=== PATIENT | female | born 1940 | race Caucasian/White ===

== ENCOUNTER 2016-10-23 20:45 | Inpatient (IN) ==
[2016-10-23] MEDS ORDERED: methylPREDNISolone SOD SUC 125 MG/2 ML VIAL IV STA (22:25)
[2016-10-23] MEDS ORDERED: AZITHROMYCIN INJ 500 MG in SODIUM CHLORIDE 0.9% 250 ML IV STA (22:25)
[2016-10-23] MEDS ORDERED: ONDANSETRON 4 MG/2 ML VIAL IV STA (22:25)
[2016-10-23] MEDS ORDERED: SODIUM CHLORIDE 0.9% 500 ML IV STA (22:25)
[2016-10-23] MEDS ORDERED: ALBUTEROL 2.5 MG/3 ML NEB RESP TX SCH (22:30)
[2016-10-23] MEDS ORDERED: AZITHROMYCIN 500 MG VIAL IV ONE (22:38)
[2016-10-23] MEDS ORDERED: ONDANSETRON 4 MG/2 ML VIAL ONE (22:38)
[2016-10-23] MEDS ORDERED: methylPREDNISolone SOD SUC 125 MG/2 ML VIAL ONE (22:38)
--- NOTE | 2016-10-24 00:39 | Emergency Department Note ---
Cathy Aquino Mantricia, am scribing for, and in the presence of, Shawn Elliott MD 22:28. Lexi Aquino Charles R, MD, personally performed the services described in this documentation, ascribed by Jacinto Morgan in my presence, and it is both accurate and complete . Arrival - Arrival Chief Complaint: Upper Respiratory ED Nursing Triage Note: Pt arrives via ems from home with complaints of cough and congestion for 2 days. Pt states that she has been coughing up yellow sputum and has had a low grade temp at home. Denies seeing her PCP. Has been taking Mucinex with no relief. States that tonight she is so sore in her upper abd and chest from coughing she called the ambulance. Pt wears home oxygen at 2L /nc. Mode of Arrival: Stretcher Limitations: No Limitations Source: Patient Time Seen by Provider: 10/23/16 21:20 - History of Present Illness HPI Narrative: Pt is a 75 y/o white female arriving to ED with c/o cough/congestion that onset 2 days ago. She states that she was Dx with pneumonia 3 times last year and fears that this will be her diagnosis this time. She states that her body is sore all over from coughing and she has experienced a fever with the cough. Pt' s flu and pneumonia shots are UTD. She has a PMHx of COPD and is currently on home O2. She reports no other complaints to ED. Onset (ago): day(s) Date of Last Menstrual Period: Hyster Allergies/Adverse Reactions: Allergies Allergy/AdvReac Type Severity Reaction Status Date / Time adhesive tape Allergy Verified 08/25/15 16:27 ceftriaxone [From Rocephin] Allergy Verified 08/24/15 17:16 Home Medications: Home Medications Medication Instructions Recorded Confirmed Type Hyoscyamine Sulfate [Symax] 0.125 mg PO Q4HR PRN 08/24/15 10/23/16 History Levothyroxine Tab [Synthroid Tab] 25 mcg PO DAILY@0700 08/24/15 10/23/16 History Meclizine [Antivert] 25 mg PO DAILY PRN 08/24/15 10/23/16 History Nitroglycerin [Nitroglycerin SL 0.4 mg SL Q5M PRN 08/24/15 10/23/16 History Tab] Temazepam [Restoril] 30 mg PO BEDTIME PRN 08/24/15 10/23/16 History amLODIPine [Norvasc] 5 mg PO DAILY 08/24/15 10/23/16 History Fluticasone/Vilanterol [Breo 1 puff INH DAILY 08/25/15 10/23/16 History Ellipta 100-25 Mcg INH] HYDROcodone/ACETAMIN 10-325 [[place] 0.5 - 1 tablet PO BID PRN 08/25/15 10/23/16 History 10-325] Umeclidinium [place] [Incruse 1 puff INH DAILY 08/25/15 10/23/16 History Ellipta] Aspirin Chew Tab 81 mg PO DAILY tablet 08/27/15 10/23/16 Rx Cilostazol [Pletal] 50 mg PO BID #60 tablet 08/27/15 10/23/16 Rx Gabapentin Cap/Tab [Neurontin 100 mg PO TID #90 capsule 08/27/15 10/23/16 Rx Cap/Tab] Sertraline [Zoloft] 25 mg PO BEDTIME #30 tablet 08/27/15 10/23/16 Rx Ticagrelor [Brilinta] 90 mg PO BID #60 tablet 08/27/15 10/23/16 Rx Acetaminophen Tab [Tylenol Tab] 325 mg PO BID PRN 09/01/15 10/23/16 History Isosorbide Dinitrate Sr [Isordil 40 mg PO TID 09/01/15 10/23/16 History Sr] Simethicone 125 mg PO DAILY PRN 09/01/15 10/23/16 History Naproxen Sodium [Aleve Tab] 220 mg PO DAILY tablet 09/02/15 10/23/16 Rx Omeprazole 20 mg PO DAILY #30 tablet. 09/02/15 10/23/16 Rx traMADol TAB [Ultram] 50 mg PO BID #30 tablet 09/02/15 10/23/16 Rx Review of System - Review of System 12 point system: reviewed and no additional remarkable complaints except as stated - Review of System Constitutional: Present: fever, other (body sore). Absent: chills, diaphoresis Eyes: Absent: discharge, pain Respiratory: Present: cough. Absent: respiratory distress, wheezing Cardiovascular: Absent: chest pain, palpitations Gastrointestinal: Absent: abdominal pain, nausea, vomiting, diarrhea Medical,Surgical,& Family Hx - Medical History Cardio: History of: Hypertension, [place], Cardiovascular Problems (stents) Neurology: History of: TIA Endocrine: History of: Thyroid Disorder Respiratory: History of: COPD Gastrointestinal: History of: GERD, GI Problems (recent colon surgery, colon removal) - Surgical History Cardiac Surgeries: Sugical HX of: Cardiac Catheterization Abdominal Surgeries: Surgical HX of: Abdominal Surgery (intestinal blockage in 2013) Reproductive Surgeries: Surgical HX of;: Hysterectomy - Family History Family History: Reports;: Family Heart Disease - Social History Smoking Status: Light tobacco smoker Frequency of Alcohol Use: None Type of Drug Use: None Exam Vital Signs: Vital Signs Temperature 99.6 F 10/23/16 20:45 Pulse Rate 91 H 10/23/16 20:45 Respiratory Rate 20 10/23/16 20:45 Blood Pressure 140/85 10/23/16 20:45 O2 Sat by Pulse Oximetry 98 10/23/16 20:45 - General General appearance: alert, in no apparent distress, other (frail) - Head Head exam: Present: atraumatic, normocephalic, normal inspection - Eye Eye exam: Present: PERRL, EOMI, other (sunken orbits) - ENT ENT exam: Present: normal exam, normal oropharynx, mucous membranes moist, TM's normal bilaterally, normal external ear exam - Neck Neck exam: Present: normal inspection, full ROM, trachea midline. Absent: tenderness - Chest Chest inspection: Present: normal inspection, symmetric chest wall rise. Absent : tenderness - Respiratory Respiratory exam: Present: normal lung sounds bilaterally, accessory muscle use - Cardiovascular Cardiovascular exam: Present: regular rate, normal rhythm, normal heart sounds - Abdominal Exam Abdominal exam: Present: soft, normal bowel sounds. Absent: distention, tenderness, guarding, rebound - Extremities Exam Extremities exam: Present: normal inspection, full ROM, normal capillary refill. Absent: tenderness, pedal edema - Back Exam Back exam: Present: normal inspection, full ROM. Absent: tenderness - Neurological Exam Neurological exam: Present: alert, oriented X3, CN II-XII intact, normal gait, reflexes normal - Psychiatric Psychiatric exam: Present: normal affect, normal mood - Skin Skin exam: Present: warm, dry, intact, normal color Course - Reevaluation(s) Reevaluation #1: Patient reevaluated she is not breathing very well still slight improvement. Patient will place the hospital for COPD exacerbation Time: 02:31 - Consultations Consultation #1: Hospitalist will admit patient Time: 02:31 Results - Labs CBC & BMP: 10/23/16 00:26 10/23/16 00:26 Lab Results: I have reviewed the patients labs Critical Care Time Critical Care Time: Yes Total Critical Care Time: 60 Disposition Clinical Impression: Acute dyspnea, COPD with acute exacerbation, Bronchitis, Chest wall pain, Elevated troponin, Fever Case discussed with: patient, patient's family Disposition: Still a Patient Condition: Guarded Time of Disposition: 02:33
[2016-10-24 01:22] LABS: Basophils % 0.3 % (0.0-0.8); Eosinophils % 0.1 % (0.00-10.9); Hematocrit 42.5 VOL% (35.7-47.0); Hemoglobin 13.9 GM/DL (12.0-16.0); Immature Granulocytes % 0.5 %; Immature Granulocytes Absolute 0.06 #; Lymphocytes # 0.9 10*3/uL (1.4-4.0); Lymphocytes % 7.8 % (21.3-54.2); Mean Corpuscular HGB Conc 32.7 GM/DL (32-36); Mean Corpuscular Hemoglobin 31 PG (27-34); Mean Corpuscular Volume 95.7 FL (87-102); Mean Platelet Volume 9.6 FL (9.6-12.0); Monocytes # 0.6 10*3/uL (0.11-0.8); Monocytes % 4.9 % (1.7-12.7); Neutrophils # 10.3 10*3/uL (1.4-7.4); Neutrophils % 86.4 % (38.7-73.9); Platelet Count 270 T/CUMM (130-400); Red Blood Count 4.44 MC/CUMM (3.8-5.5); Red Cell Distribution Width 14.1 % (9.3-17.3); White Blood Count 11.9 T/CUMM (4-12)
[2016-10-24 01:32] LABS: PT Patient Result 10.3 SECS
[2016-10-24 01:56] LABS: Alanine Aminotransferase 42 U/L (13-56); Albumin 3.6 G/DL (3.4-5.0); Alkaline Phosphatase 72 U/L (45-117); Aspartate Amino Transferase 51 U/L (0-37); Bilirubin,Total < 0.39 MG/DL (0.2-1.0); Blood Urea Nitrogen 17 MG/DL (7-18); Calcium 9.5 MG/DL (8.5-10.1); Glucose 174 MG/DL (74-106); Magnesium 2.1 MG/DL (1.8-2.4); Osmolality,Calculated 280.7 MOS/KG (273-304); Potassium 4.3 MMOL/L (3.5-5.1); Sodium 138 MMOL/L (136-145); Total Protein 6.9 G/DL (6.4-8.3)
[2016-10-24 02:33] LABS: CKMB % 7.4 %
[2016-10-24 02:36] LABS: Troponin I Only 0.193 NG/ML (0.00-0.045)
[2016-10-24] MEDS ORDERED: ENOXAPARIN 100 MG/ML SYRINGE SUBCUT STA (02:39)
[2016-10-24 03:01] LABS: ABG Base Excess -2.7 MMOL/L (-2.5-2.5); ABG HCO3 22.2 MMOL/L (20-26); ABG Oxygen Saturation 96.8 % (95-100); ABG TCO2 25.1 MMOL/L (23-27); Allen Test Positive
[2016-10-24 03:03] LABS: ABG PCO2 70.9 MM HG (35-48); ABG PH 7.197 (7.35-7.45)
[2016-10-24] MEDS ORDERED: FUROSEMIDE 40 MG/4 ML VIAL IV STA (03:05)
[2016-10-24] MEDS ORDERED: FUROSEMIDE 40 MG/4 ML VIAL ONE (03:08)
[2016-10-24] MEDS ORDERED: ENOXAPARIN 30 MG/0.3 ML SYRINGE ONE (03:08)
[2016-10-24] MEDS ORDERED: ALBUTEROL/IPRATROPIUM 3 ML NEB RESP TX PRN (03:14)
[2016-10-24] MEDS ORDERED: TEMAZEPAM 15 MG CAPSULE PO PRN (03:19)
[2016-10-24] MEDS ORDERED: NITROGLYCERIN SL 0.4 MG TABLET SL PRN (03:19)
[2016-10-24] MEDS ORDERED: HYOSCYAMINE 0.125 MG TABLET PO PRN (03:19)
[2016-10-24] MEDS ORDERED: ACETAMINOPHEN 325 MG TABLET PO PRN (03:19)
[2016-10-24] MEDS ORDERED: SIMETHICONE CHEW 125 MG TABLET PO PRN (03:19)
[2016-10-24] MEDS ORDERED: ETOMIDATE 20 MG/10 ML VIAL IV ONE (03:24)
--- NOTE | 2016-10-24 03:27 | Hospitalist History & Physical ---
Assessment and Plan (1) Acute respiratory failure with hypoxia and hypercarbia Status: Acute Assessment and plan: Patient may need intubation. Dr. Elliott in the emergency room is going to talk with the patient regarding intubating her. I believe she needs it but. Once intubated patient will be followed by pulmonary in the ICU on consultation for vent management Current Visit: Yes (2) Abnormal EKG Status: Acute Assessment and plan: Pursue troponins with 4 more draws. Patient may need to be seen by ornament stapler. Current Visit: Yes (3) COPD with acute exacerbation Status: Acute Assessment and plan: This possible this could bacteriuria instigated. Will get sputum for Gram stain and culture. Also do sputum for AFB stain and culture. Reportedly patient is allergic to ceftriaxone therefore give aztreonam 1 g IV every 8 hours and vancomycin 750 mg IV every 12 hours and azithromycin 500 mg IV q. daily for the next 4 days. Current Visit: Yes (4) Elevated troponin Status: Acute Current Visit: Yes (5) Hypercholesterolemia Status: Acute Assessment and plan: Continue home meds. Check lipid panel in the bone Current Visit: No History of Present Illness Chief complaint: Respiratory distress History of present illness: Ms. Meneses is a 75 year old female presented to the ED with c/o cough/congestion that onset 2 days ago. She states that she was Dx with pneumonia 3 times last year and fears that this will be her diagnosis this time. She states that her body is sore all over from coughing and she has experienced a fever with the cough. Pt's flu and pneumonia shots are UTD. She has a PMHx of COPD and is currently on home O2. She reports no other complaints to ED. she also states that she has lost a lot of weight recently patient after resection of her small bowel to manage bowel blockade that has been caused by adhesions. Denies any history of chronic pneumonias that will be caused by Mycobacterium avium complex (as would be with Lady Marana syndrome). Home Medications Medication Instructions Recorded Confirmed Type Hyoscyamine Sulfate [Symax] 0.125 mg PO Q4HR PRN 08/24/15 10/23/16 History Levothyroxine Tab [Synthroid Tab] 25 mcg PO DAILY@0700 08/24/15 10/23/16 History Meclizine [Antivert] 25 mg PO DAILY PRN 08/24/15 10/23/16 History Nitroglycerin [Nitroglycerin SL 0.4 mg SL Q5M PRN 08/24/15 10/23/16 History Tab] Temazepam [Restoril] 30 mg PO BEDTIME PRN 08/24/15 10/23/16 History amLODIPine [Norvasc] 5 mg PO DAILY 08/24/15 10/23/16 History Fluticasone/Vilanterol [Breo 1 puff INH DAILY 08/25/15 10/23/16 History Ellipta 100-25 Mcg INH] HYDROcodone/ACETAMIN 10-325 [[place] 0.5 - 1 tablet PO BID PRN 08/25/15 10/23/16 History 10-325] Umeclidinium [place] [Incruse 1 puff INH DAILY 08/25/15 10/23/16 History Ellipta] Aspirin Chew Tab 81 mg PO DAILY tablet 08/27/15 10/23/16 Rx Cilostazol [Pletal] 50 mg PO BID #60 tablet 08/27/15 10/23/16 Rx Gabapentin Cap/Tab [Neurontin 100 mg PO TID #90 capsule 08/27/15 10/23/16 Rx Cap/Tab] Sertraline [Zoloft] 25 mg PO BEDTIME #30 tablet 08/27/15 10/23/16 Rx Ticagrelor [Brilinta] 90 mg PO BID #60 tablet 08/27/15 10/23/16 Rx Acetaminophen Tab [Tylenol Tab] 325 mg PO BID PRN 09/01/15 10/23/16 History Isosorbide Dinitrate Sr [Isordil 40 mg PO TID 09/01/15 10/23/16 History Sr] Simethicone 125 mg PO DAILY PRN 09/01/15 10/23/16 History Naproxen Sodium [Aleve Tab] 220 mg PO DAILY tablet 09/02/15 10/23/16 Rx Omeprazole 20 mg PO DAILY #30 tablet. 09/02/15 10/23/16 Rx traMADol TAB [Ultram] 50 mg PO BID #30 tablet 09/02/15 10/23/16 Rx Allergies Allergy/AdvReac Type Severity Reaction Status Date / Time adhesive tape Allergy Verified 08/25/15 16:27 ceftriaxone [From Rocephin] Allergy Verified 04/11/16 17:16 Medical,Surgical,& Family Hx - Medical History Cardio: History of: Hypertension, [place], Cardiovascular Problems (stents) Neurology: History of: TIA Endocrine: History of: Thyroid Disorder Respiratory: History of: COPD Gastrointestinal: History of: GERD, GI Problems (recent colon surgery, colon removal) - Surgical History Cardiac Surgeries: Sugical HX of: Cardiac Catheterization Abdominal Surgeries: Surgical HX of: Abdominal Surgery (intestinal blockage in 2014) Reproductive Surgeries: Surgical HX of;: Hysterectomy - Family History Family History: Reports;: Family Heart Disease - Social History Smoking Status: Light tobacco smoker Frequency of Alcohol Use: None Type of Drug Use: None Review of systems: A 12 point system assessment was done. Patient is problems talking to him in full statements because of respiratory distress. She obviously has very distant lung sounds related to exacerbation of COPD. They have just done an ABG but has a pH of 7.19 PCO2 of 70 and a PO2 110 troponin is bumped to 0.193 but CPK total is only 123 with a CK-MB of 9.1B natruretic peptide is 434. Exam - Constitutional Vitals: Period Temp Pulse Resp BP Sys/Booker Pulse Ox Last 24 Hr 99.6 F-99.6 F 91-91 20-20 140-140/85-85 98 General appearance: under weight - Head Head exam: Present: normocephalic, atraumatic - Eye Eye exam: Present: EOMI, other (Anicteric sclera no conjunctival petechia) Pupils: Present: JESENIA - Neck Neck exam: Present: normal inspection, other (Supple neck no adenopathy midline trachea) - Respiratory Respiratory exam: Present: wheezes (Diffuse), other (Distant lung sounds) - Cardiovascular Cardiovascular exam: Present: regular rate and rhythm - GI/Abdominal GI/Abdominal exam: Present: normal bowel sounds, soft - Extremities Exam Extremities exam: Present: full ROM - Neurological Exam Neurological exam: Present: alert, oriented X3, CN II-XII intact - Psychiatric Psychiatric exam: Present: anxious - Skin Skin exam: Present: normal color, warm, dry Results - Labs CBC & BMP: 10/23/16 00:26 10/23/16 00:26 Lab Results: I have reviewed the past 24 hour labs (Pure respiratory acidosis with a pH of 7.197 PCO2 of 70.9 PO2 110 serum bicarb of 34 we suggest that she may have some extent of CO2 retention for a long time AST 51 ALT 42 alk phos of 72. EKG shows sinus rhythm poor progression of anterior forces deep T-wave inversion in the lateral leads and inferior ST depression)
[2016-10-24] MEDS ORDERED: VANCOMYCIN INJ 750 MG in SODIUM CHLORIDE 0.9% 250 ML IV SCH (03:30)
[2016-10-24] MEDS ORDERED: SUCCINYLCHOLINE 200 MG/10 ML VIAL ONE (03:53)
[2016-10-24] MEDS ORDERED: PROPOFOL 1,000 MG/100 ML BOTTLE IV ONE (03:57)
[2016-10-24] MEDS ORDERED: VECURONIUM 10 MG VIAL IV STA (04:13)
[2016-10-24] MEDS: PROPOFOL 1,000 MG/100 ML BOTTLE IV SCH ×2 (04:15→21:10)
[2016-10-24 04:18] LABS: ABG Base Excess -1.8 MMOL/L (-2.5-2.5); ABG Oxygen Saturation 99.4 % (95-100); ABG PH 7.293 (7.35-7.45); ABG TCO2 22.9 MMOL/L (23-27)
--- NOTE | 2016-10-24 04:48 | EKG Report ---
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
[2016-10-24] MEDS ORDERED: VECURONIUM 10 MG VIAL IV ONE (05:45)
[2016-10-24] MEDS: LEVOTHYROXINE 25 MCG TABLET PO SCH (06:23)
[2016-10-24] MEDS: AZTREONAM 1,000 MG in SODIUM CHLORIDE 0.9% 100 ML IV SCH ×3 (06:23→21:35)
[2016-10-24] MEDS ORDERED: IPRATROPIUM 500 MCG/2.5 ML NEB RESP TX SCH (07:00)
--- NOTE | 2016-10-24 07:32 | XRay Report ---
Referring Physician: Shawn Elliott Exam: XR chest 1V portable Date: October 23, 2016 at 10:30 PM Reason: Shortness of breath Comparison: Chest 2 views September 01, 2015 Findings: The cardiac silhouette is normal in size, but there is prominent calcified plaque at the thoracic aorta and likely calcified mediastinal lymph nodes. The lungs are hyperexpanded, which can be seen in COPD, and emphysema is suspected. There are also reticular opacities within both lungs. This is similar to before and likely represents scarring/fibrosis. Mild prominent edema is not excluded. No pneumothorax is identified. There is blunting of the costophrenic angles, which could be related to scarring. Remote left rib fractures are present, but no acute osseous process is seen. Impression: Chronic changes are present as described above. Superimposed mild pulmonary edema is not excluded. PROCEDURE INTERPRETED AT [facility] DEPARTMENT OF RADIOLOGY Final Report Signed by: Dr. Johan Carmichael
[2016-10-24] MEDS: ALBUTEROL/IPRATROPIUM 3 ML NEB RESP TX SCH ×3 (07:44→21:08)
--- NOTE | 2016-10-24 08:22 | XRay Report ---
Portable chest Date: 10/24/2016 Clinical history: Endotracheal tube placement Comparison: 10/23/2016 Technique: Portable AP sitting chest Findings: The heart is normal in size. The lungs are overexpanded with chronic scarring. Progressive parenchymal findings with ill-defined densities. The endotracheal tube is in satisfactory position. Nasogastric tube seen entering the stomach. Stable mediastinum with degenerative changes. Old healed left rib fractures. Impression: The endotracheal tube is in satisfactory position with nasogastric tube seen entering the stomach. Bullous emphysema with chronic scarring. Progressive atelectasis/infiltration with ill-defined densities. PROCEDURE INTERPRETED AT [facility] DEPARTMENT OF RADIOLOGY Final Report Signed by: Dr. Mary Kirkland
[2016-10-24] MEDS: VANCOMYCIN INJ 500 MG in SODIUM CHLORIDE 0.9% 100 ML IV SCH (08:52)
[2016-10-24] MEDS: ASPIRIN CHEW 81 MG TABLET PO SCH (08:52)
[2016-10-24] MEDS: TICAGRELOR 90 MG TABLET PO SCH ×2 (08:52→21:12)
[2016-10-24] MEDS: PANTOPRAZOLE 40 MG TABLET PO SCH (08:53)
[2016-10-24] MEDS: amLODIPine 5 MG TABLET PO SCH (08:53)
[2016-10-24] MEDS: GABAPENTIN 100 MG CAPSULE PO SCH ×3 (08:53→21:13)
[2016-10-24] MEDS: traMADol 50 MG TABLET PO SCH ×2 (08:53→21:12)
[2016-10-24] MEDS: CILOSTAZOL 50 MG TABLET PO SCH ×2 (08:53→21:12)
[2016-10-24] MEDS ORDERED: NAPROXEN 500 MG TABLET PO PRN (09:00)
[2016-10-24] MEDS ORDERED: ISOSORBIDE DINITRATE SR 40 MG TABLET PO SCH (09:00)
--- NOTE | 2016-10-24 10:30 | Pulmonology Consult Note ---
History of Present Illness Chief complaint: Ventilator. Acute exacerbation of chronic COPD. History of present illness: Ms. Meneses is a 75 year old white female whom I been asked to see in pulmonary consultation for evaluation and treatment of her pulmonary problems and management of mechanical ventilation. This patient came to the emergency room with a complaint of coughing congestion over 2 day period of time. She went on to add that she had pneumonia 3 times in the last year and was afraid that this would progress to pneumonia. She complained that her whole body was painful because of coughing and she had experienced fever. She went on to say that she has lost a lot of weight recently after re-section of small bowel to manage bowel blockage. Blockage of been caused by adhesions. The remainder of her review of systems were negative. In the emergency room on FiO2 32% the patient's ABGs showed a pH of 7.197. PCO2 of 70.9 and a PO2 of 110 with a bicarb of 22.2. In the emergency room the patient required intubation mechanical ventilation. Allergies. Adhesive tape. Rocephin. Statin intolerance Past history. High blood pressure. Heart disease followed by Dr. Manas Anne. Myocardial infarction. Cardiac stents. Thyroid disease. History of TIAs. COPD. Gastroesophageal reflux disease. Recent removal of small bowel. Previous 6 hysterectomy. Chronic coagulation, Brilinta. Social history. Patient describes herself as a light tobacco smoker. She denies alcohol. Family history. Positive for heart disease. Chest x-ray. My interpretation. Heart size is normal. Both hilum are retracted superiorly. Benign calcifications both hilar areas. Pulmonary arteries are at least top normal. Calcification aortic knob. Endotracheal tube is in good position. Mediastinum is normal. There is bilateral upper lung interstitial scarring with some loss of volume and retraction of the hilum superiorly. In the mid lung gandhi bilaterally there are possible small nodular areas that look like old infection or scarring. There is hyperlucency of the lower lung gandhi. Bullae are seen in both bases. There is bilateral apical capping. There are old healed rib fractures on the left. Microbiology. Nothing has been reported. Follow-up blood gases on mechanical ventilation with an FiO2 of 32% show a pH of 7.293. PCO2 53. PCO2 of 220 and a bicarb of 23.0. Lab. Electrolytes are normal. Creatinine is 0.9 with a BUN of 17. Magnesium is normal. Liver function tests are normal. Troponin is 0.193. Natruretic peptide was 434. Protein albumin and globulin are normal. Physical exam. Vital signs. See below. Psychiatric. Awake alert and tries to answer questions. Neurologic. Cranial nerves are grossly intact and the patient moves all 4 extremities. Sensory exam was not done in gait was not tested. Face. Symmetrical. No unusual swelling of the lips or tongues. Neck. Symmetrical kyphotic with no meningismus. Lymphatics. No submandibular cervical supraclavicular or epitrochlear adenopathy Chest. Hyperinflated with coarse large airway congestion. Heart. No gallop Breasts. Deferred Abdomen. Nondistended. Positive bowel sounds were heard Lower extremities. Chronic venous stasis changes. Arterial. Carotid upstroke is only fair. Upper extremity pulses are palpable and lower extremity pulses are nonpalpable. Venous exam veins of the neck and arms are normal. There is chronic venous stasis changes over the lower extremities. The remainder the exam is noncontributory. Impression. 1. Acute respiratory failure for oxygen and carbon dioxide requiring intubation mechanical ventilation 2. 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 Tobacco abuse 4. Multiple bilateral mid zone interstitial appearing nodules that are probably old scarring. Watch for other causes such as atypical mycobacterium TB 5. Arteriosclerotic heart disease. Stents. History of atrial fib. Followed by Dr. Anne 6. Hypothyroidism 7. Hyperlipidemia 8. See past history Plan. 1. Mechanical ventilator weaning protocol 2. Physical therapy protocol while on mechanical ventilation. 3. Proton pump inhibitor protocol. 4. Deep venous thrombophlebitis prevention protocol. 5. Sputum for Gram stain culture sensitivity 6. Agree with antibiotic choices per 7. Add Solu-Medrol 40 IV push every 8 hours 8. Daily chest x-ray, ABGs and lab. 9. See orders Home Medications Medication Instructions Recorded Confirmed Type Hyoscyamine Sulfate [Symax] 0.125 mg PO Q4HR PRN 08/24/15 10/23/16 History Levothyroxine Tab [Synthroid Tab] 25 mcg PO DAILY@0700 08/24/15 10/23/16 History Meclizine [Antivert] 25 mg PO DAILY PRN 08/24/15 10/23/16 History Nitroglycerin [Nitroglycerin SL 0.4 mg SL Q5M PRN 08/24/15 10/23/16 History Tab] Temazepam [Restoril] 30 mg PO BEDTIME PRN 08/24/15 10/23/16 History amLODIPine [Norvasc] 5 mg PO DAILY 08/24/15 10/23/16 History Fluticasone/Vilanterol [Breo 1 puff INH DAILY 08/25/15 10/23/16 History Ellipta 100-25 Mcg INH] HYDROcodone/ACETAMIN 10-325 [[place] 0.5 - 1 tablet PO BID PRN 08/25/15 10/23/16 History 10-325] Umeclidinium [place] [Incruse 1 puff INH DAILY 08/25/15 10/23/16 History Ellipta] Aspirin Chew Tab 81 mg PO DAILY tablet 08/27/15 10/23/16 Rx Cilostazol [Pletal] 50 mg PO BID #60 tablet 08/27/15 10/23/16 Rx Gabapentin Cap/Tab [Neurontin 100 mg PO TID #90 capsule 08/27/15 10/23/16 Rx Cap/Tab] Sertraline [Zoloft] 25 mg PO BEDTIME #30 tablet 08/27/15 10/23/16 Rx Ticagrelor [Brilinta] 90 mg PO BID #60 tablet 08/27/15 10/23/16 Rx Acetaminophen Tab [Tylenol Tab] 325 mg PO BID PRN 09/01/15 10/23/16 History Isosorbide Dinitrate Sr [Isordil 40 mg PO TID 09/01/15 10/23/16 History Sr] Simethicone 125 mg PO DAILY PRN 09/01/15 10/23/16 History Naproxen Sodium [Aleve Tab] 220 mg PO DAILY tablet 09/02/15 10/23/16 Rx Omeprazole 20 mg PO DAILY #30 tablet. 09/02/15 10/23/16 Rx traMADol TAB [Ultram] 50 mg PO BID #30 tablet 09/02/15 10/23/16 Rx Allergies Allergy/AdvReac Type Severity Reaction Status Date / Time adhesive tape Allergy Verified 08/25/15 16:27 ceftriaxone [From Rocephin] Allergy Verified 08/24/15 17:16 Exam (Pulmonay) H&P - Constitutional Vitals: Period Temp Pulse Resp BP Sys/[place]er Pulse Ox Last 24 Hr 98.6 F-99.6 F 86-97 11-20 112-179/72-97 97-100 Medical,Surgical,& Family Hx - Medical History Cardio: History of: Hypertension, CT, Cardiovascular Problems (stents) Neurology: History of: TIA Endocrine: History of: Thyroid Disorder Respiratory: History of: COPD Gastrointestinal: History of: GERD, GI Problems (recent colon surgery, colon removal) - Surgical History Cardiac Surgeries: Sugical HX of: Cardiac Catheterization Abdominal Surgeries: Surgical HX of: Abdominal Surgery (intestinal blockage in 2013) Reproductive Surgeries: Surgical HX of;: Hysterectomy - Family History Family History: Reports;: Family Heart Disease - Social History Smoking Status: Light tobacco smoker Frequency of Alcohol Use: None Type of Drug Use: None Results - Labs CBC & BMP: 10/23/16 00:26 10/23/16 00:26
[2016-10-24 10:49] LABS: Apearance,Urine Slightly Hazy (Clear); Bacteria,Urine Occasional /HPF (Few); Bilirubin,Urine Negative (Negative); Blood, Urine Negative (Negative); Glucose,Urine (UA) Negative (Negative); Hyaline Casts,Urine 5 /LPF (0-3); Ketones,Urine 5 mg/dL (Negative); Mucus,Urine Occasional /LPF (Occasional); Nitrite,Urine Negative (Negative); Protein,Urine 30 MG/DL; RBC,Urine 4 /HPF (0-4); Squamous Epithelial Cell,Urine Occasional /HPF (0-10); Urine Color Yellow (Yellow); Urine Specific Gravity 1.023 (1.001-1.035); Urine Urobilinogen < 2.0 EU/DL (0.2-1.0); WBC,Urine 1 /HPF (0-6)
[2016-10-24] MEDS: methylPREDNISolone SOD SUC 40 MG/1 ML VIAL IV SCH ×2 (11:29→21:09)
[2016-10-24] MEDS: ISOSORBIDE DINITRATE 20 MG TABLET PO SCH ×2 (15:21→21:11)
[2016-10-24 16:39] LABS: Free T4 (Free Thyroxine) 1.01 NG/DL (0.76-1.46); Thyroid Stimulating Hormone 0.661 uIU/ml (0.358-3.74)
[2016-10-24] MEDS: SODIUM CHLORIDE 0.9% 1,000 ML IV SCH (21:09)
[2016-10-24] MEDS: SERTRALINE 25 MG TABLET PO SCH (21:12)
[2016-10-25] MEDS: ALBUTEROL/IPRATROPIUM 3 ML NEB RESP TX SCH ×4 (00:25→19:57)
[2016-10-25] MEDS: AZITHROMYCIN INJ 500 MG in SODIUM CHLORIDE 0.9% 250 ML IV SCH (00:30)
[2016-10-25] MEDS: SODIUM CHLORIDE 0.9% 1,000 ML IV SCH ×4 (00:31→20:13)
[2016-10-25] MEDS: methylPREDNISolone SOD SUC 40 MG/1 ML VIAL IV SCH ×3 (03:32→18:35)
[2016-10-25] MEDS: VANCOMYCIN INJ 500 MG in SODIUM CHLORIDE 0.9% 100 ML IV SCH ×2 (03:32→20:13)
[2016-10-25 03:46] LABS: ABG Base Excess -2.2 MMOL/L (-2.5-2.5); ABG HCO3 22.5 MMOL/L (20-26); ABG Oxygen Saturation 98.5 % (95-100); ABG PCO2 44.3 MM HG (35-48); ABG PH 7.335 (7.35-7.45); ABG TCO2 21.6 MMOL/L (23-27); Allen Test Positive; Pt O2 Delivery Device Ventilator
[2016-10-25 05:34] LABS: Hematocrit 30.5 VOL% (35.7-47.0); Immature Granulocytes % 0.4 %; Immature Granulocytes Absolute 0.04 #; Lymphocytes # 0.3 10*3/uL (1.4-4.0); Lymphocytes % 2.6 % (21.3-54.2); Mean Corpuscular HGB Conc 33.4 GM/DL (32-36); Mean Corpuscular Hemoglobin 32 PG (27-34); Mean Platelet Volume 9.8 FL (9.6-12.0); Monocytes # 0.3 10*3/uL (0.11-0.8); Monocytes % 2.5 % (1.7-12.7); Neutrophils % 94.5 % (38.7-73.9); Platelet Count 238 T/CUMM (130-400); Red Cell Distribution Width 14.1 % (9.3-17.3); White Blood Count 10.5 T/CUMM (4-12)
[2016-10-25 05:48] LABS: Hemoglobin 10.2 GM/DL (12.0-16.0); Red Blood Count 3.21 MC/CUMM (3.8-5.5)
[2016-10-25 05:58] LABS: Calcium 8.1 MG/DL (8.5-10.1); Magnesium 2.2 MG/DL (1.8-2.4); Osmolality,Calculated 290.5 MOS/KG (273-304); Potassium 3.9 MMOL/L (3.5-5.1); Prealbumin 11.7 MG/DL (20-40)
[2016-10-25] MEDS: AZTREONAM 1,000 MG in SODIUM CHLORIDE 0.9% 100 ML IV SCH ×3 (06:04→21:58)
[2016-10-25] MEDS: PROPOFOL 1,000 MG/100 ML BOTTLE IV SCH ×2 (06:04→08:57)
[2016-10-25] MEDS: LEVOTHYROXINE 25 MCG TABLET PO SCH (06:05)
[2016-10-25 06:08] LABS: Band Neutrophils 1 % (0-10); Lymphocytes 2 % (20-55); Platelet Estimate Normal; Segmented Neutrophils 95 % (50-85); Total Cells Counted 100
[2016-10-25 06:09] LABS: Burr Cells Slight
--- NOTE | 2016-10-25 06:57 | XRay Report ---
Portable chest Date: 10/25/2016 Clinical history: Ventilator management Comparison: 10/24/2016 Technique: Portable AP sitting chest Findings: The heart is small and compressed by the over expanded lungs. Stable supportive devices. No significant change in the appearance of the lungs, mediastinum, or osseous structures. Impression: No significant change in the appearance of the chest when compared to the previous exam. Bullous emphysema with chronic scarring and superimposed atelectasis/infiltration/ill-defined densities. PROCEDURE INTERPRETED AT [facility] DEPARTMENT OF RADIOLOGY Final Report Signed by: Dr. Mary Kirkland
--- NOTE | 2016-10-25 08:38 | Physician Query Form ---
CLICK EDIT DOCUMENT TO SELECT QUERY ANSWER --> OK --> SIGN PROVIDERS: Make your selection(s) from the choices in EACH section by typing an "x" and enter comments in the comment section. Please use your independent medical judgment in providing your response. This request does not imply that any particular answer is desired or expected. CLINICAL INDICATORS: (Providers should not edit this section) Height: 4' 11" Weight: 32.205 Kg Animal Care Attendant BMI: 14.5 Nutritional supplements: Seed Sales Manager notes: Other clinical notes: Patient admitted with respiratory failure, BMI of 14.5#, Height of 4' 11", Wt. OF 32.205 kg, "loss of body fat", "loss of muscle mass", "underweight", and the patient was provided tube feeding recommendations per dietary. Based on the above, which following choice most accurately represents the patient's nutritional status? ( ) Malnutrition ( ) mild ( ) moderate (x ) severe ( ) Protein calorie malnutrition ( ) mild ( ) moderate ( ) severe ( ) Emaciation due to malnutrition ( ) Nutritional marasmus ( ) Cachexia ( ) Underweight ( ) No nutritional deficiency ( ) Other, please specify: ( ) Clinically unable to determine Mild Malnutrition (BMI < 18.5, % Normal Body Weight 85-95%) Moderate Malnutrition (BMI < 17, % Normal Body Weight 75-85%) Severe Malnutrition (BMI < 16, % Normal Body Weight < 75%) Source: Bertha COMMENTS: PLEASE ALSO DOCUMENT RESPONSE IN PROGRESS NOTES AND/OR DISCHARGE SUMMARY Use of terms such as suspected, likely, or probable (associated with a specific diagnosis that is being evaluated, monitored, or treated as if it exists) are acceptable and can be restated in the discharge summary if not ruled out. MTDD
[2016-10-25] MEDS: ISOSORBIDE DINITRATE 20 MG TABLET PO SCH ×3 (08:57→20:14)
[2016-10-25] MEDS: CILOSTAZOL 50 MG TABLET PO SCH ×2 (08:57→20:14)
[2016-10-25] MEDS: traMADol 50 MG TABLET PO SCH ×2 (08:57→20:14)
[2016-10-25] MEDS: ASPIRIN CHEW 81 MG TABLET PO SCH (08:58)
[2016-10-25] MEDS: GABAPENTIN 100 MG CAPSULE PO SCH ×3 (08:58→20:14)
[2016-10-25] MEDS: TICAGRELOR 90 MG TABLET PO SCH ×2 (08:58→20:14)
[2016-10-25] MEDS: amLODIPine 5 MG TABLET PO SCH (08:58)
[2016-10-25] MEDS: PANTOPRAZOLE 40 MG TABLET PO SCH (09:58)
--- NOTE | 2016-10-25 10:34 | Pulmonology Progress Note ---
Pulmonary - PN: Subj Interval history: This is a 75-year-old white female whom I saw in pulmonary consultation on 2016. She had come to the emergency room with shortness of breath and respiratory failure for oxygen and carbon dioxide and required intubation mechanical ventilation. My impressions were. 1. Acute respiratory failure for oxygen and carbon dioxide requiring intubation mechanical ventilation 2. 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 Tobacco abuse 4. Multiple bilateral mid zone interstitial appearing nodules that are probably old scarring. Watch for other causes such as atypical mycobacterium TB 5. Arteriosclerotic heart disease. Stents. History of atrial fib. Followed by Dr. Anne 6. Hypothyroidism 7. Hyperlipidemia 8. See past history 10/25/2016. Today's chest x-ray shows slight increase markings in both left upper lungs where the patient has chronic scarring and volume loss and is slight increased markings in the mid and lower lung gandhi as compared to chest x-ray done 10/24/2016. This is all probably secondary to rehydration. Natruretic peptide is 152. Electrolytes are normal. Creatinine is 0.9 with a BUN of 36. H&H with rehydration is 10.2/30.5 with normal indices. White count is 10,594.56. ABGs on mechanical ventilation and FiO2 of 50% shows a pH 7.33, PCO2 44, PO2 125 and bicarb 22.5. There are no positive cultures. Patient is on stage III of the weaning protocol. Physical therapy protocol is also been ordered. Dr. Thacker and I have reviewed and discussed the case and we have coordinated our care. Physical exam. Vital signs. See below Neurologic. Patient's cranial nerves appear to be intact she moves all 4 extremities. She can follow commands. Face. Symmetrical. No swelling of the lips or tongue. Neck. Symmetrical. No meningismus. Lymphatics. No submandibular cervical supraclavicular or epitrochlear adenopathy Chest. Hyperinflated. Mild coarse large airway congestion. No wheezes. Heart. No gallop Abdomen. Nondistended. Rare bowel sounds Lower extremities. Skin changes of chronic venous stasis bilaterally in the lower extremities. The remainder the physical exam is noncontributory per Plan. 10/24/2016 1. Mechanical ventilator weaning protocol 2. Physical therapy protocol while on mechanical ventilation. 3. Proton pump inhibitor protocol. 4. Deep venous thrombophlebitis prevention protocol. 5. Sputum for Gram stain culture sensitivity 6. Agree with antibiotic choices per 7. Add Solu-Medrol 40 IV push every 8 hours 8. Daily chest x-ray, ABGs and lab. 9. See orders 10/25/2016. 1. Stage III mechanical ventilation weaning protocol 2. See today's note. Above Exam (Progress Note) - Constitutional Vitals: Period Temp Pulse Resp BP Sys/Booker Pulse Ox Last 24 Hr 96 F-98.4 F 76-105 11-33 89-146/61-92 1-100 Results - Labs CBC & BMP: 10/25/16 03:52 10/25/16 03:52
--- NOTE | 2016-10-25 13:37 | Hospitalist Progress Note ---
Assessment and Plan (1) Acute respiratory failure with hypoxia and hypercarbia Status: Acute Assessment and plan: 1)acute respiratory failure- on nebs, steroids, IV antibiotics and she is improving with successful CPAP trials. Continue weaning protocol. Her CXR shows some in creased markings but pO2 ok. Hopefully off vent soon. azithro, aztreonam, vanc nebs, solumedrol 40mg IV q8h. 2)elevated troponin- trops 0.19-0.23-0.18. no EKG changes. I think the elevated troponin is due to her sepsis. monitor. 3)underweight- she has had small bowel resections for SBO per her history and this could play a part. Continue tube feeds. 4)hypergylcemia- begin SSI and accuchecks. 5)decreased UOP- continue IVF- I think overall she is intravascularly dry. Current Visit: Yes (2) Severely underweight adult Status: Acute Current Visit: Yes (3) COPD with acute exacerbation Status: Acute Current Visit: Yes (4) Bronchitis Status: Acute Current Visit: Yes (5) Abnormal EKG Status: Acute Current Visit: Yes Hospitalist: Subjective Interval history: Mrs Meneses is stable on vent today. She is alert and responsive when sedation decreased. She is off pressors. She is progressing well with CPAP trials. Exam - Constitutional Vitals: Period Temp Pulse Resp BP Sys/Booker Pulse Ox Last 24 Hr 96 F-98.3 F 66-98 11-26 90-146/50-92 1-100 General appearance: no acute distress, under weight - Head Head exam: Present: normocephalic, atraumatic - Eye Eye exam: Present: EOMI. Absent: scleral icterus Pupils: Present: JESENIA - Respiratory Respiratory exam: Present: clear to auscultation bilaterally. Absent: rales, wheezes - Cardiovascular Cardiovascular exam: Present: regular rate and rhythm - GI/Abdominal GI/Abdominal exam: Present: normal bowel sounds, soft. Absent: tenderness - Extremities Exam Extremities exam: Absent: edema - Skin Skin exam: Present: warm, dry Results - Labs CBC & BMP: 10/25/16 03:52 10/25/16 03:52 Lab Results: I have reviewed the past 24 hour labs
[2016-10-25] MEDS ORDERED: GLUCAGON 1 MG VIAL IM PRN (13:45)
[2016-10-25] MEDS ORDERED: DEXTROSE 50% 25 GM/50 ML VIAL IV PRN (13:45)
[2016-10-25] MEDS: ENOXAPARIN 30 MG/0.3 ML SYRINGE SUBCUT SCH (14:45)
[2016-10-25] MEDS: PANTOPRAZOLE 40 MG VIAL IV SCH (14:48)
[2016-10-25] MEDS: INSULIN LISPRO 100 UNIT/ML SUBCUT SCH (17:47)
[2016-10-25] MEDS: SERTRALINE 25 MG TABLET PO SCH (20:14)
[2016-10-26] MEDS: INSULIN LISPRO 100 UNIT/ML SUBCUT SCH ×4 (00:19→17:43)
[2016-10-26] MEDS: AZITHROMYCIN INJ 500 MG in SODIUM CHLORIDE 0.9% 250 ML IV SCH (00:19)
[2016-10-26] MEDS: ALBUTEROL/IPRATROPIUM 3 ML NEB RESP TX SCH ×4 (01:50→20:35)
[2016-10-26] MEDS: PROPOFOL 1,000 MG/100 ML BOTTLE IV SCH ×4 (02:43→17:44)
[2016-10-26] MEDS: methylPREDNISolone SOD SUC 40 MG/1 ML VIAL IV SCH ×3 (02:43→18:23)
[2016-10-26 04:10] LABS: Basophils % 0.1 % (0.0-0.8); Hematocrit 29.5 VOL% (35.7-47.0); Hemoglobin 9.5 GM/DL (12.0-16.0); Immature Granulocytes % 0.9 %; Immature Granulocytes Absolute 0.16 #; Lymphocytes # 0.5 10*3/uL (1.4-4.0); Lymphocytes % 2.5 % (21.3-54.2); Mean Corpuscular HGB Conc 32.2 GM/DL (32-36); Mean Corpuscular Hemoglobin 31 PG (27-34); Mean Corpuscular Volume 97.4 FL (87-102); Mean Platelet Volume 9.7 FL (9.6-12.0); Monocytes # 0.7 10*3/uL (0.11-0.8); Monocytes % 3.6 % (1.7-12.7); Neutrophils # 16.6 10*3/uL (1.4-7.4); Neutrophils % 92.9 % (38.7-73.9); Platelet Count 235 T/CUMM (130-400); Red Blood Count 3.03 MC/CUMM (3.8-5.5); Red Cell Distribution Width 14.4 % (9.3-17.3); White Blood Count 17.9 T/CUMM (4-12)
[2016-10-26 04:36] LABS: Calcium 8.4 MG/DL (8.5-10.1); Osmolality,Calculated 292.8 MOS/KG (273-304)
[2016-10-26 04:42] LABS: Band Neutrophils 1 % (0-10); Burr Cells Slight; Hypochromasia Slight; Lymphocytes 4 % (20-55); Platelet Estimate Adequate; Segmented Neutrophils 91 % (50-85); Total Cells Counted 100
[2016-10-26 05:06] LABS: ABG Base Excess -4.8 MMOL/L (-2.5-2.5); ABG HCO3 20.5 MMOL/L (20-26); ABG Oxygen Saturation 99.3 % (95-100); ABG PCO2 51.7 MM HG (35-48); ABG PH 7.253 (7.35-7.45); Allen Test Positive; Pt O2 Delivery Device Ventilator
[2016-10-26] MEDS: AZTREONAM 1,000 MG in SODIUM CHLORIDE 0.9% 100 ML IV SCH ×3 (05:12→21:56)
--- NOTE | 2016-10-26 06:32 | XRay Report ---
Portable chest Date: 10/26/2016 Clinical history: Ventilator Comparison: 10/25/2016 Technique: Portable AP sitting chest Findings: The heart is small and compressed by the over expanded lungs. Skinfolds are noted with no significant change in the appearance of the lungs. Residual atelectasis at the lung bases. Stable mediastinum and osseous structures. Impression: No significant change in the appearance the chest when compared to the previous exam. Bullous emphysema with chronic scarring and superimposed atelectasis/minimal infiltration with persistent ill-defined densities. PROCEDURE INTERPRETED AT [facility], [place] DEPARTMENT OF RADIOLOGY Final Report Signed by: Dr. Mary Kirkland
[2016-10-26] MEDS: SODIUM CHLORIDE 0.9% 1,000 ML IV SCH ×3 (08:57→16:25)
[2016-10-26] MEDS: LEVOTHYROXINE 25 MCG TABLET PO SCH (10:23)
[2016-10-26] MEDS: ISOSORBIDE DINITRATE 20 MG TABLET PO SCH ×3 (10:23→21:55)
[2016-10-26] MEDS: TICAGRELOR 90 MG TABLET PO SCH ×2 (10:23→21:56)
[2016-10-26] MEDS: ASPIRIN CHEW 81 MG TABLET PO SCH (10:23)
[2016-10-26] MEDS: GABAPENTIN 100 MG CAPSULE PO SCH ×3 (10:24→21:56)
[2016-10-26] MEDS: PANTOPRAZOLE 40 MG VIAL IV SCH (10:24)
[2016-10-26] MEDS: amLODIPine 5 MG TABLET PO SCH (10:24)
[2016-10-26] MEDS: traMADol 50 MG TABLET PO SCH ×2 (10:24→21:55)
[2016-10-26] MEDS: CILOSTAZOL 50 MG TABLET PO SCH ×2 (10:24→21:55)
[2016-10-26] MEDS: CLORAZEPATE 3.75 MG TABLET PO SCH ×3 (10:24→21:55)
[2016-10-26] MEDS: MORPHINE 2 MG/1 ML SYRINGE IV PRN ×2 (10:25→16:25)
[2016-10-26] MEDS: MECLIZINE 25 MG TABLET PO PRN (10:26)
--- NOTE | 2016-10-26 10:26 | Pulmonology Progress Note ---
Pulmonary - PN: Subj Interval history: This is a 75-year-old white female whom I saw in pulmonary consultation on 2016. She had come to the emergency room with shortness of breath and respiratory failure for oxygen and carbon dioxide and required intubation mechanical ventilation. My impressions were. 1. Acute respiratory failure for oxygen and carbon dioxide requiring intubation mechanical ventilation 2. 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 Tobacco abuse 4. Multiple bilateral mid zone interstitial appearing nodules that are probably old scarring. Watch for other causes such as atypical mycobacterium TB 5. Arteriosclerotic heart disease. Stents. History of atrial fib. Followed by Dr. Anne 6. Hypothyroidism 7. Hyperlipidemia 8. See past history 10/25/2016. Today's chest x-ray shows slight increase markings in both left upper lungs where the patient has chronic scarring and volume loss and is slight increased markings in the mid and lower lung gandhi as compared to chest x-ray done 10/24/2016. This is all probably secondary to rehydration. Natruretic peptide is 152. Electrolytes are normal. Creatinine is 0.9 with a BUN of 36. H&H with rehydration is 10.2/30.5 with normal indices. White count is 10,594.56. ABGs on mechanical ventilation and FiO2 of 50% shows a pH 7.33, PCO2 44, PO2 125 and bicarb 22.5. There are no positive cultures. Patient is on stage III of the weaning protocol. Physical therapy protocol is also been ordered. Dr. Thacker and I have reviewed and discussed the case and we have coordinated our care. 10/26/2016. Today's x-ray is much better. Heart size is normal. Pulmonary arteries are enlarged both hilar areas that are retracted superiorly. There is increase in interstitial scarring in both upper lung gandhi and there is associated apical capping. On previous x-rays there is appeared to be an infiltrate in this area that would be compatible with pneumonia and the left upper lung and the right upper lung. This is improving. There is a slight infiltrate seen in the lateral basilar segment of the left lower lung. No evidence of heart failure. ABGs on FiO2 of 50% and mechanical ventilation shows a pH of 7.25, PCO2 51.7, PO2 178 and bicarbonate 20.5. Electrolytes are normal. Creatinine is 0.50. BUN is 25. Glucoses are acceptable. Natruretic peptide is dropped 152. Thyroid function tests are normal. White count is 17, 900 with 93% segs. Platelets are 235,000. H&H is 9.5/29.5. This patient has a good bit of anxiety. She is being started on Tranxene 3.[address] Félix Thacker and I have discussed and reviewed this case and we have coordinated our care. Patient is on stage IV of the weaning protocol. She is also on physical therapy protocol. Physical exam. Vital signs. See below Neurologic. Patient's cranial nerves appear to be intact she moves all 4 extremities. She can follow commands. Face. Symmetrical. No swelling of the lips or tongue. Neck. Symmetrical. No meningismus. Lymphatics. No submandibular cervical supraclavicular or epitrochlear adenopathy Chest. Hyperinflated. Mild coarse large airway congestion. No wheezes. Heart. No gallop Abdomen. Nondistended. Rare bowel sounds Lower extremities. Skin changes of chronic venous stasis bilaterally in the lower extremities. The remainder the physical exam is noncontributory per Plan. 10/24/2016 1. Mechanical ventilator weaning protocol 2. Physical therapy protocol while on mechanical ventilation. 3. Proton pump inhibitor protocol. 4. Deep venous thrombophlebitis prevention protocol. 5. Sputum for Gram stain culture sensitivity 6. Agree with antibiotic choices per 7. Add Solu-Medrol 40 IV push every 8 hours 8. Daily chest x-ray, ABGs and lab. 9. See orders 10/25/2016. 1. Stage III mechanical ventilation weaning protocol 2. See today's note. Above 10/26/2016. 1. See today's note above. 2. Tranxene 3. Daily chest x-ray, ABGs, lab Exam (Progress Note) - Constitutional Vitals: Period Temp Pulse Resp BP Sys/Booker Pulse Ox Last 24 Hr 98.3 F-98.7 F 66-118 12-24 90-156/50-90 97-100 Results - Labs CBC & BMP: 10/26/16 03:29 10/26/16 03:29
--- NOTE | 2016-10-26 11:08 | Hospitalist Progress Note ---
Assessment and Plan (1) Acute respiratory failure with hypoxia and hypercarbia Status: Acute Assessment and plan: 1)acute chronic resp failure- nebs, steroids, antibiotics. weaning from vent. discussed steroids with Dr Soliz- continue at current dose today. CXR looks cleared. WBC remians up (steroids). 2)elevated troponin- secondary to sepsis 3)underweight- tolerating tube feeds. will need a more indepth eval of intake etc when seh is off the vent. 4)hyperglycemia- on SSI 5)UOP improved, on IVF. creatinine now 0.5 which is prob her baseline given her size. 6)anemia- stable. Current Visit: Yes (2) Severely underweight adult Status: Acute Current Visit: Yes (3) COPD with acute exacerbation Status: Acute Current Visit: Yes (4) Bronchitis Status: Acute Current Visit: Yes (5) Abnormal EKG Status: Acute Current Visit: Yes Hospitalist: Subjective Interval history: Mrs Meneses is stable on vent. She is more alert this morning and appears anxious. I have coordinated care with Dr Soliz. He anticipates extubation for her in the next couple of days. Exam - Constitutional Vitals: Period Temp Pulse Resp BP Sys/Booker Pulse Ox Last 24 Hr 98.3 F-98.7 F 66-118 12-24 90-156/50-90 97-100 General appearance: mild distress, under weight - Head Head exam: Present: normocephalic, atraumatic - Eye Eye exam: Present: EOMI. Absent: scleral icterus - Respiratory Respiratory exam: Present: wheezes. Absent: rhonchi - Cardiovascular Cardiovascular exam: Absent: regular rate and rhythm - GI/Abdominal GI/Abdominal exam: Present: normal bowel sounds, soft. Absent: tenderness - Extremities Exam Extremities exam: Absent: edema - Neurological Exam Neurological exam: Present: alert, oriented X3 - Skin Skin exam: Present: warm, dry Results - Labs CBC & BMP: 10/26/16 03:29 10/26/16 03:29 Lab Results: I have reviewed the past 24 hour labs
[2016-10-26] MEDS: MONTELUKAST 10 MG TABLET PO SCH (12:25)
[2016-10-26] MEDS: ENOXAPARIN 30 MG/0.3 ML SYRINGE SUBCUT SCH (13:29)
[2016-10-26] MEDS: VANCOMYCIN INJ 500 MG in SODIUM CHLORIDE 0.9% 100 ML IV SCH ×2 (14:55)
[2016-10-26] MEDS: SERTRALINE 25 MG TABLET PO SCH (21:56)
[2016-10-27] MEDS: ALBUTEROL/IPRATROPIUM 3 ML NEB RESP TX SCH ×4 (00:32→19:42)
[2016-10-27] MEDS: AZITHROMYCIN INJ 500 MG in SODIUM CHLORIDE 0.9% 250 ML IV SCH (00:57)
[2016-10-27] MEDS: INSULIN LISPRO 100 UNIT/ML SUBCUT SCH ×4 (00:58→18:15)
[2016-10-27] MEDS: PROPOFOL 1,000 MG/100 ML BOTTLE IV SCH ×4 (00:59→17:02)
[2016-10-27] MEDS: methylPREDNISolone SOD SUC 40 MG/1 ML VIAL IV SCH ×3 (03:35→20:50)
[2016-10-27] MEDS: VANCOMYCIN INJ 500 MG in SODIUM CHLORIDE 0.9% 100 ML IV SCH ×2 (03:35→17:02)
[2016-10-27 03:45] LABS: ABG Base Excess -3.4 MMOL/L (-2.5-2.5); ABG HCO3 21.6 MMOL/L (20-26); ABG Oxygen Saturation 99.4 % (95-100); ABG PCO2 52.7 MM HG (35-48); ABG PH 7.271 (7.35-7.45); ABG TCO2 21.8 MMOL/L (23-27); Allen Test Positive; Pt O2 Delivery Device Ventilator
[2016-10-27 05:00] LABS: Magnesium 2.3 MG/DL (1.8-2.4); Phosphorous 1.5 MG/DL (2.5-4.9); Prealbumin 16.9 MG/DL (20-40)
[2016-10-27 05:20] LABS: Calcium 8.3 MG/DL (8.5-10.1); Osmolality,Calculated 294.4 MOS/KG (273-304); Potassium 4.4 MMOL/L (3.5-5.1)
[2016-10-27 06:07] LABS: Basophils % 0.1 % (0.0-0.8); Immature Granulocytes % 1.4 %; Immature Granulocytes Absolute 0.18 #; Lymphocytes # 0.4 10*3/uL (1.4-4.0); Lymphocytes % 3.1 % (21.3-54.2); Mean Corpuscular HGB Conc 32.3 GM/DL (32-36); Mean Corpuscular Hemoglobin 32 PG (27-34); Mean Corpuscular Volume 98.4 FL (87-102); Mean Platelet Volume 9.6 FL (9.6-12.0); Monocytes # 0.6 10*3/uL (0.11-0.8); Monocytes % 4.4 % (1.7-12.7); Neutrophils # 12.1 10*3/uL (1.4-7.4); Platelet Count 241 T/CUMM (130-400); Red Blood Count 3.15 MC/CUMM (3.8-5.5); Red Cell Distribution Width 14.8 % (9.3-17.3); White Blood Count 13.3 T/CUMM (4-12)
[2016-10-27 06:34] LABS: Band Neutrophils 2 % (0-10); Hypochromasia 1+; Lymphocytes 1 % (20-55); Ovalocytes Slight; Platelet Estimate Adequate; Segmented Neutrophils 94 % (50-85); Total Cells Counted 100
[2016-10-27] MEDS: LEVOTHYROXINE 25 MCG TABLET PO SCH (06:37)
[2016-10-27] MEDS: SODIUM CHLORIDE 0.9% 1,000 ML IV SCH ×2 (06:37→13:28)
[2016-10-27] MEDS: AZTREONAM 1,000 MG in SODIUM CHLORIDE 0.9% 100 ML IV SCH ×3 (06:37→21:01)
--- NOTE | 2016-10-27 07:19 | XRay Report ---
Portable chest Date: 10/27/2016 Clinical history: Ventilator Comparison: 10/26/2016 Technique: Portable AP sitting chest Findings: The heart is normal in size with stable supportive devices. The lungs remain overexpanded with chronic scarring and residual atelectasis. Artifactual densities are noted with stable mediastinum and osseous structures. Impression: No significant change in the appearance of the chest when compared to the previous exam. PROCEDURE INTERPRETED AT [facility] DEPARTMENT OF RADIOLOGY Final Report Signed by: Dr. Mary Kirkland
--- NOTE | 2016-10-27 10:37 | Pulmonology Progress Note ---
Pulmonary - PN: Subj Interval history: This is a 75-year-old white female whom I saw in pulmonary consultation on 2016. She had come to the emergency room with shortness of breath and respiratory failure for oxygen and carbon dioxide and required intubation mechanical ventilation. My impressions were. 1. Acute respiratory failure for oxygen and carbon dioxide requiring intubation mechanical ventilation 2. 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 Tobacco abuse 4. Multiple bilateral mid zone interstitial appearing nodules that are probably old scarring. Watch for other causes such as atypical mycobacterium TB 5. Arteriosclerotic heart disease. Stents. History of atrial fib. Followed by Dr. Anne 6. Hypothyroidism 7. Hyperlipidemia 8. See past history 10/25/2016. Today's chest x-ray shows slight increase markings in both left upper lungs where the patient has chronic scarring and volume loss and is slight increased markings in the mid and lower lung gandhi as compared to chest x-ray done 10/24/2016. This is all probably secondary to rehydration. Natruretic peptide is 152. Electrolytes are normal. Creatinine is 0.9 with a BUN of 36. H&H with rehydration is 10.2/30.5 with normal indices. White count is 10,594.56. ABGs on mechanical ventilation and FiO2 of 50% shows a pH 7.33, PCO2 44, PO2 125 and bicarb 22.5. There are no positive cultures. Patient is on stage III of the weaning protocol. Physical therapy protocol is also been ordered. Dr. Thacker and I have reviewed and discussed the case and we have coordinated our care. 10/26/2016. Today's x-ray is much better. Heart size is normal. Pulmonary arteries are enlarged both hilar areas that are retracted superiorly. There is increase in interstitial scarring in both upper lung gandhi and there is associated apical capping. On previous x-rays there is appeared to be an infiltrate in this area that would be compatible with pneumonia and the left upper lung and the right upper lung. This is improving. There is a slight infiltrate seen in the lateral basilar segment of the left lower lung. No evidence of heart failure. ABGs on FiO2 of 50% and mechanical ventilation shows a pH of 7.25, PCO2 51.7, PO2 178 and bicarbonate 20.5. Electrolytes are normal. Creatinine is 0.50. BUN is 25. Glucoses are acceptable. Natruretic peptide is dropped 152. Thyroid function tests are normal. White count is 17, 900 with 93% segs. Platelets are 235,000. H&H is 9.5/29.5. This patient has a good bit of anxiety. She is being started on Tranxene 3.[address] Félix Thacker and I have discussed and reviewed this case and we have coordinated our care. Patient is on stage IV of the weaning protocol. She is also on physical therapy protocol. 10/27/2016. On 10/26/2016 the patient's daughter whose name I believe was Mrs. Aviles called me at the office and I discussed the case with her. Told her that the patient has severe underlying lung disease. She is doing fairly well with the weaning process but this is going to take a while longer and may very well be difficult in light of her severe underlying lung disease. Her daughter confirmed that she continues to smoke cigarettes. Today's chest x-ray is stable from previous days and the endotracheal tube is in good position. ABGs on mechanical ventilation and FiO2 50% shows a pH 7.27, PCO2 52.7, PO2 of 209 and a bicarb of 21.6. There are no positive cultures. Electrolytes are normal. Creatinine is 0.4 with a BUN of 27. White blood cell count is dropped to 13,391 segs. H&H 10.0 31.0 and platelets of 241,000. Thyroid function test are normal. Labs been reviewed. Medicines been reviewed. Patient's on stage V the weaning protocol Physical exam. Vital signs. See below Neurologic. Patient's cranial nerves appear to be intact she moves all 4 extremities. She can follow commands. Face. Symmetrical. No swelling of the lips or tongue. Neck. Symmetrical. No meningismus. Lymphatics. No submandibular cervical supraclavicular or epitrochlear adenopathy Chest. Hyperinflated. Mild coarse large airway congestion. No wheezes. Heart. No gallop Abdomen. Nondistended. Rare bowel sounds Lower extremities. Skin changes of chronic venous stasis bilaterally in the lower extremities. The remainder the physical exam is noncontributory per Plan. 10/24/2016 1. Mechanical ventilator weaning protocol 2. Physical therapy protocol while on mechanical ventilation. 3. Proton pump inhibitor protocol. 4. Deep venous thrombophlebitis prevention protocol. 5. Sputum for Gram stain culture sensitivity 6. Agree with antibiotic choices per 7. Add Solu-Medrol 40 IV push every 8 hours 8. Daily chest x-ray, ABGs and lab. 9. See orders 10/25/2016. 1. Stage III mechanical ventilation weaning protocol 2. See today's note. Above 10/26/2016. 1. See today's note above. 2. Tranxene 3. Daily chest x-ray, ABGs, lab 10/27/2016. 1. See today's note above. Exam (Progress Note) - Constitutional Vitals: Period Temp Pulse Resp BP Sys/Booker Pulse Ox Last 24 Hr 96.1 F-98.1 F 75-111 10-29 97-143/46-77 96-100 Results - Labs CBC & BMP: 10/27/16 05:42 10/27/16 04:33
[2016-10-27] MEDS: ISOSORBIDE DINITRATE 20 MG TABLET PO SCH ×3 (11:30→20:50)
[2016-10-27] MEDS: MECLIZINE 25 MG TABLET PO PRN (11:30)
[2016-10-27] MEDS: MORPHINE 2 MG/1 ML SYRINGE IV PRN ×2 (11:30→17:17)
[2016-10-27] MEDS: GABAPENTIN 100 MG CAPSULE PO SCH ×3 (11:30→20:50)
[2016-10-27] MEDS: CLORAZEPATE 3.75 MG TABLET PO SCH ×3 (11:30→20:50)
[2016-10-27] MEDS: traMADol 50 MG TABLET PO SCH ×2 (11:30→20:50)
--- NOTE | 2016-10-27 11:59 | Hospitalist Progress Note ---
Assessment and Plan (1) Acute respiratory failure with hypoxia and hypercarbia Status: Acute Assessment and plan: 1)acute on chronic resp failure, hypoxic and hypercapnic form COPD- CPAP trials going well but she has severe lung disease. On steroids- no wheezing, decrease dose a bit. Consult CM for LTAC referral. She will likely come off vent without trach, but will need longer inpatient care given the severity of her underlying disease and weight loss and debility. WBC up on steroids. 2)underweight- her daughter says that she eats really well but can't gain weight. I suspect this is due to the severity of her underlying lung disease. 3)hyperglycemia- on SSI 4)UOP- improved, continue IVF. 5)anemia- stable. 6)dispo- I talked to her daughter by phone yesterday and answered her questions. She understands that recovery will be a long process for her mother. Current Visit: Yes (2) Severely underweight adult Status: Acute Current Visit: Yes (3) COPD with acute exacerbation Status: Acute Current Visit: Yes (4) Bronchitis Status: Acute Current Visit: Yes (5) Abnormal EKG Status: Acute Current Visit: Yes Hospitalist: Subjective Interval history: Mrs Meneses is stable on the vent. She appears comfortable. Exam - Constitutional Vitals: Period Temp Pulse Resp BP Sys/Booker Pulse Ox Last 24 Hr 96.1 F-97.6 F 75-111 10-29 97-143/46-77 96-100 General appearance: no acute distress, under weight - Eye Eye exam: Present: EOMI. Absent: scleral icterus Pupils: Present: JESENIA - Respiratory Respiratory exam: Present: clear to auscultation bilaterally. Absent: wheezes - Cardiovascular Cardiovascular exam: Present: regular rate and rhythm - GI/Abdominal GI/Abdominal exam: Present: normal bowel sounds, soft. Absent: tenderness - Extremities Exam Extremities exam: Absent: edema Results - Labs CBC & BMP: 10/27/16 05:42 10/27/16 04:33 Lab Results: I have reviewed the past 24 hour labs
[2016-10-27] MEDS: TICAGRELOR 90 MG TABLET PO SCH ×2 (13:28→20:50)
[2016-10-27] MEDS: ASPIRIN CHEW 81 MG TABLET PO SCH (13:28)
[2016-10-27] MEDS: amLODIPine 5 MG TABLET PO SCH (13:29)
[2016-10-27] MEDS: CILOSTAZOL 50 MG TABLET PO SCH ×2 (13:30→20:50)
[2016-10-27] MEDS: MONTELUKAST 10 MG TABLET PO SCH (13:30)
[2016-10-27] MEDS: PANTOPRAZOLE 40 MG VIAL IV SCH (13:30)
[2016-10-27] MEDS: SERTRALINE 25 MG TABLET PO SCH (21:02)
[2016-10-28] MEDS: INSULIN LISPRO 100 UNIT/ML SUBCUT SCH ×3 (00:13→11:57)
[2016-10-28] MEDS: AZITHROMYCIN INJ 500 MG in SODIUM CHLORIDE 0.9% 250 ML IV SCH (00:38)
[2016-10-28] MEDS: ALBUTEROL/IPRATROPIUM 3 ML NEB RESP TX SCH ×3 (01:19→14:30)
[2016-10-28] MEDS: VANCOMYCIN INJ 500 MG in SODIUM CHLORIDE 0.9% 100 ML IV SCH (03:17)
[2016-10-28] MEDS: PROPOFOL 1,000 MG/100 ML BOTTLE IV SCH ×2 (04:45→05:51)
[2016-10-28 04:50] LABS: ABG Base Excess 1.2 MMOL/L (-2.5-2.5); ABG HCO3 27.3 MMOL/L (20-26); ABG Oxygen Saturation 98.9 % (95-100); ABG PCO2 50.8 MM HG (35-48); ABG PH 7.348 (7.35-7.45); ABG PO2 179.5 MM HG (80-95); ABG TCO2 28.8 MMOL/L (23-27); Allen Test Positive; Pt O2 Delivery Device Ventilator
[2016-10-28 05:22] LABS: Calcium 8.1 MG/DL (8.5-10.1); Osmolality,Calculated 298.3 MOS/KG (273-304)
[2016-10-28] MEDS: SODIUM CHLORIDE 0.9% 1,000 ML IV SCH (05:51)
[2016-10-28] MEDS: AZTREONAM 1,000 MG in SODIUM CHLORIDE 0.9% 100 ML IV SCH (05:51)
[2016-10-28 06:33] LABS: Eosinophils % 0.1 % (0.00-10.9); Hematocrit 30.6 VOL% (35.7-47.0); Hemoglobin 9.6 GM/DL (12.0-16.0); Immature Granulocytes % 0.7 %; Immature Granulocytes Absolute 0.06 #; Lymphocytes # 1.2 10*3/uL (1.4-4.0); Lymphocytes % 13.5 % (21.3-54.2); Mean Corpuscular HGB Conc 31.4 GM/DL (32-36); Mean Corpuscular Hemoglobin 32 PG (27-34); Mean Corpuscular Volume 100.3 FL (87-102); Mean Platelet Volume 9.5 FL (9.6-12.0); Monocytes # 0.8 10*3/uL (0.11-0.8); Monocytes % 8.4 % (1.7-12.7); Neutrophils # 6.9 10*3/uL (1.4-7.4); Neutrophils % 77.3 % (38.7-73.9); Platelet Count 226 T/CUMM (130-400); Red Blood Count 3.05 MC/CUMM (3.8-5.5); Red Cell Distribution Width 14.9 % (9.3-17.3)
--- NOTE | 2016-10-28 07:02 | XRay Report ---
Exam: XR chest 1V portable Date: 10/28/2016 4:00 AM Indication: Follow-up ventilator respiratory failure Comparison: 10/27/2016 Technical:AP portable Findings: Endotracheal tube is at the level aortic knob. Nasogastric tube traverses esophagus. ASVD is present. A few granuloma changes are present with some calcified nodes in the mediastinum left greater than right. Bony structures reveal no acute findings. Old left rib fractures are present. Impression: 1. Stable appearance of the life support tubing 2. Component of underlying COPD and fibrotic scarring with out obvious acute infiltrates. 3. Old left rib fractures and granuloma changes PROCEDURE INTERPRETED AT [facility] DEPARTMENT OF RADIOLOGY Final Report Signed by: Dr. Branden Barraza
[2016-10-28] MEDS: LEVOTHYROXINE 25 MCG TABLET PO SCH (07:04)
[2016-10-28] MEDS: methylPREDNISolone SOD SUC 40 MG/1 ML VIAL IV SCH (08:08)
[2016-10-28] MEDS: ASPIRIN CHEW 81 MG TABLET PO SCH (09:24)
[2016-10-28] MEDS: TICAGRELOR 90 MG TABLET PO SCH (09:24)
[2016-10-28] MEDS: GABAPENTIN 100 MG CAPSULE PO SCH (09:25)
[2016-10-28] MEDS: ISOSORBIDE DINITRATE 20 MG TABLET PO SCH (09:25)
[2016-10-28] MEDS: MONTELUKAST 10 MG TABLET PO SCH (09:26)
[2016-10-28] MEDS: amLODIPine 5 MG TABLET PO SCH (09:26)
[2016-10-28] MEDS: CILOSTAZOL 50 MG TABLET PO SCH (09:26)
[2016-10-28] MEDS: traMADol 50 MG TABLET PO SCH (09:27)
[2016-10-28] MEDS: PANTOPRAZOLE 40 MG VIAL IV SCH (09:30)
[2016-10-28 10:13] LABS: ABG Base Excess -1.1 MMOL/L (-2.5-2.5); ABG HCO3 28.1 MMOL/L (20-26); ABG Oxygen Saturation 96.9 % (95-100); ABG PO2 97.7 MM HG (80-95); ABG TCO2 30.3 MMOL/L (23-27)
[2016-10-28 10:16] LABS: ABG PCO2 71.8 MM HG (35-48)
--- NOTE | 2016-10-28 10:35 | Pulmonology Progress Note ---
Pulmonary - PN: Subj Interval history: This is a 75-year-old white female whom I saw in pulmonary consultation on 2016. She had come to the emergency room with shortness of breath and respiratory failure for oxygen and carbon dioxide and required intubation mechanical ventilation. My impressions were. 1. Acute respiratory failure for oxygen and carbon dioxide requiring intubation mechanical ventilation 2. 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 Tobacco abuse 4. Multiple bilateral mid zone interstitial appearing nodules that are probably old scarring. Watch for other causes such as atypical mycobacterium TB 5. Arteriosclerotic heart disease. Stents. History of atrial fib. Followed by Dr. Anne 6. Hypothyroidism 7. Hyperlipidemia 8. See past history 10/25/2016. Today's chest x-ray shows slight increase markings in both left upper lungs where the patient has chronic scarring and volume loss and is slight increased markings in the mid and lower lung gandhi as compared to chest x-ray done 10/24/2016. This is all probably secondary to rehydration. Natruretic peptide is 152. Electrolytes are normal. Creatinine is 0.9 with a BUN of 36. H&H with rehydration is 10.2/30.5 with normal indices. White count is 10,594.56. ABGs on mechanical ventilation and FiO2 of 50% shows a pH 7.33, PCO2 44, PO2 125 and bicarb 22.5. There are no positive cultures. Patient is on stage III of the weaning protocol. Physical therapy protocol is also been ordered. Dr. Thacker and I have reviewed and discussed the case and we have coordinated our care. 10/26/2016. Today's x-ray is much better. Heart size is normal. Pulmonary arteries are enlarged both hilar areas that are retracted superiorly. There is increase in interstitial scarring in both upper lung gandhi and there is associated apical capping. On previous x-rays there is appeared to be an infiltrate in this area that would be compatible with pneumonia and the left upper lung and the right upper lung. This is improving. There is a slight infiltrate seen in the lateral basilar segment of the left lower lung. No evidence of heart failure. ABGs on FiO2 of 50% and mechanical ventilation shows a pH of 7.25, PCO2 51.7, PO2 178 and bicarbonate 20.5. Electrolytes are normal. Creatinine is 0.50. BUN is 25. Glucoses are acceptable. Natruretic peptide is dropped 152. Thyroid function tests are normal. White count is 17, 900 with 93% segs. Platelets are 235,000. H&H is 9.5/29.5. This patient has a good bit of anxiety. She is being started on Tranxene 3.[address] Félix Thacker and I have discussed and reviewed this case and we have coordinated our care. Patient is on stage IV of the weaning protocol. She is also on physical therapy protocol. 10/27/2016. On 10/26/2016 the patient's daughter whose name I believe was Mrs. Aviles called me at the office and I discussed the case with her. Told her that the patient has severe underlying lung disease. She is doing fairly well with the weaning process but this is going to take a while longer and may very well be difficult in light of her severe underlying lung disease. Her daughter confirmed that she continues to smoke cigarettes. Today's chest x-ray is stable from previous days and the endotracheal tube is in good position. ABGs on mechanical ventilation and FiO2 50% shows a pH 7.27, PCO2 52.7, PO2 of 209 and a bicarb of 21.6. There are no positive cultures. Electrolytes are normal. Creatinine is 0.4 with a BUN of 27. White blood cell count is dropped to 13,391 segs. H&H 10.0 31.0 and platelets of 241,000. Thyroid function test are normal. Labs been reviewed. Medicines been reviewed. Patient's on stage V the weaning protocol 10/28/2016. This patient has severe underlying COPD and came to the emergency room significantly short of breath with hypoxemia and hypercarbia. She is a smoker who is continued to smoke up until the time of admission. She is done well on mechanical ventilation. She is woken up and can can cooperate some. She does have a tendency to get anxious. This patient has been on the weaning protocol and yesterday she was able to do 17 hours of CPAP. This morning I tried her on the T-tube for an hour with an FiO2 of 50% and the result was a pH of 7.21, PCO2 of 71.8 and PO2 of 97.7 with a bicarb of 28.1. Patient did well until about 50-55 minutes when she tired out. I am going to change her protocol to a stage where we do T-tube for 30 minutes 3 times a day and will advance as tolerated. When this is done I am going to cut her FiO2 to 30% as she is almost certainly a CO2 retainer who would do better on the lower level of oxygen. Electrolytes are normal. Creatinine is 0.4 with a BUN of 29. White count is dropped to 9000 with 77 segs. H&H is 9.6/30.6 and platelets are 226,000. Thyroid function tests are normal. This patient is beginning to accumulate some pulmonary secretions. She has not had any infiltrates on her chest x-ray. Her chest x-ray shows hyperinflation and there is some very mild interstitial scarring with loss of volume in both upper lungs. Physical exam. Vital signs. See below Neurologic. Patient's cranial nerves appear to be intact she moves all 4 extremities. She can follow commands. Face. Symmetrical. No swelling of the lips or tongue. Neck. Symmetrical. No meningismus. Lymphatics. No submandibular cervical supraclavicular or epitrochlear adenopathy Chest. Hyperinflated. Mild coarse large airway congestion. No wheezes. Heart. No gallop Abdomen. Nondistended. Rare bowel sounds Lower extremities. Skin changes of chronic venous stasis bilaterally in the lower extremities. The remainder the physical exam is noncontributory per Plan. 10/24/2016 1. Mechanical ventilator weaning protocol 2. Physical therapy protocol while on mechanical ventilation. 3. Proton pump inhibitor protocol. 4. Deep venous thrombophlebitis prevention protocol. 5. Sputum for Gram stain culture sensitivity 6. Agree with antibiotic choices per 7. Add Solu-Medrol 40 IV push every 8 hours 8. Daily chest x-ray, ABGs and lab. 9. See orders 10/25/2016. 1. Stage III mechanical ventilation weaning protocol 2. See today's note. Above 10/26/2016. 1. See today's note above. 2. Tranxene 3. Daily chest x-ray, ABGs, lab 10/27/2016. 1. See today's note above. 10/28/2016. 1. See today's note above. 2. Did not do well on a 1 hour T-tube trial. We will try again at one half hour 3 times a day with a decrease FiO2. Watch for CO2 retention. Exam (Progress Note) - Constitutional Vitals: Period Temp Pulse Resp BP Sys/Booker Pulse Ox Last 24 Hr 96.3 F-98.5 F 81-101 10-26 83-144/50-82 98-100 Results - Labs CBC & BMP: 10/28/16 06:18 10/28/16 04:49
[2016-10-28] MEDS: CLORAZEPATE 3.75 MG TABLET PO SCH (11:47)
--- NOTE | 2016-10-28 12:45 | Hospitalist Progress Note ---
Assessment and Plan (1) Acute respiratory failure with hypoxia and hypercarbia Status: Acute Assessment and plan: 1)acute on chronic resp failure, hypoxic and hypercapnic form COPD- CPAP trials going well but she has severe lung disease. On steroids- no wheezing, decrease dose a bit. Consult CM for LTAC referral. She will likely come off vent without trach, but will need longer inpatient care given the severity of her underlying disease and weight loss and debility. WBC up on steroids. On vanc, azactam, azithro- can stop these because all cultures negative, CXR clear. begin oral levaquin. No urine culture reported, and this was the most likely source of infection on admission. 2)underweight- her daughter says that she eats really well but can't gain weight. I suspect this is due to the severity of her underlying lung disease. 3)hyperglycemia- on SSI. glucose well controlled 4)UOP- improved, continue IVF. 5)anemia- stable. H&H dropped over first 24 hours after hydration but has been stable since. 6)dispo- referred to LTAC. I talked to her daughter and answered her questions. She wants a [facility]. Current Visit: Yes (2) Severely underweight adult Status: Acute Current Visit: Yes (3) COPD with acute exacerbation Status: Acute Current Visit: Yes (4) Bronchitis Status: Acute Current Visit: Yes (5) Abnormal EKG Status: Acute Current Visit: Yes Hospitalist: Subjective Interval history: Mrs Meneses is doing well today on vent, appears comfortable. She tired at ttube trial. Exam - Constitutional Vitals: Period Temp Pulse Resp BP Sys/Booker Pulse Ox Last 24 Hr 96.3 F-98.5 F 81-118 10-28 83-159/50-89 98-100 General appearance: no acute distress, under weight - Head Head exam: Present: normocephalic, atraumatic - Eye Eye exam: Present: EOMI. Absent: scleral icterus Pupils: Present: JESENIA - Respiratory Respiratory exam: Present: clear to auscultation bilaterally. Absent: rhonchi, wheezes - Cardiovascular Cardiovascular exam: Present: regular rate and rhythm - GI/Abdominal GI/Abdominal exam: Present: normal bowel sounds, soft. Absent: tenderness - Extremities Exam Extremities exam: Absent: edema - Neurological Exam Neurological exam: Present: other (sedated) - Skin Skin exam: Present: warm, dry Results - Labs CBC & BMP: 10/28/16 06:18 10/28/16 04:49 Lab Results: I have reviewed the past 24 hour labs
[2016-10-28] MEDS ORDERED: LEVOFLOXACIN 500 MG TABLET PO SCH (13:00)
--- NOTE | 2016-10-28 14:22 | Discharge Summary ---
Hospital Course - Hospital Course Hospital Course: Mrs Meneses presented with acute on chronic hypoxic and hypercapnic respiratory failure from COPD and sepsis. She was intubated shortly after admission and has been on the vent since. She is on steroids, nebs. She was on IV antibiotics but her BCx were negative and CXR showed no infitrate so I have stopped them today. She has had pneumonia several times in the last few months. She did CPAP for 16-17 hours ysterday but tired today with ttube trial. It is anticipated that she will be able to extubate without requiring trach. Serial troponins on admission were 0.19-0.23-0.17 without hemodynamic instability. EKG with LVH and TWI in anterior leads that did not change. This was due to her sepsis picture at presentation. She is being fed with tube feeds which she has tolerated. Her UOP and renal function are stable. I have discussed her prognosis with her daughter. Due to Mrs Meneses's malnutrtion and severe COPD, she will benefit from a longer hospital stay. Her daughter Tootie Aviles agrees with this evaluation and requests transfer [facility]. - Time spent with patient Time with patient DS: Greater than 30 minutes (discharge planning, medicine reconciliation, documentation, talking to her family) Diagnosis - Discharge Diagnosis (1) Acute respiratory failure with hypoxia and hypercarbia Status: Acute (2) Severely underweight adult Status: Acute (3) COPD with acute exacerbation Status: Acute (4) Bronchitis Status: Acute (5) Abnormal EKG Status: Acute Discharge Plan - Discharge Data Disposition: Disch/Xfer to Longterm Hos Condition at Discharge: Guarded Discharge Diet: other (tube feeding diet) Activity: as per physical therapy, other (on vent) - Discharge Medications New Albuterol/Ipratropium Neb [Duoneb] 3 ml RESP TX RT Q6H Albuterol/Ipratropium Neb [Duoneb] 3 ml RESP TX RT Q4H PRN PRN Reason: Shortness Of Breath/Wheezing amLODIPine [Norvasc] 5 mg PO DAILY tablet Aspirin Chew Tab 81 mg PO DAILY tablet Clorazepate [Tranxene] 3.75 mg PO TID tablet Dextrose 50% [D50] 25 gm IV PRN PRN vial PRN Reason: Hypoglycemia with IV access Glucagon 1 mg IM PRN PRN vial PRN Reason: Hypoglycemia w/o IV access Ipratropium Neb [Atrovent Neb] 500 mcg RESP TX RT QID Isosorbide Dinitrate [Isordil] 40 mg PO TID tablet Levofloxacin Tab [Levaquin Tab] 500 mg PO Q24H tablet Levothyroxine Tab [Synthroid Tab] 25 mcg PO DAILY@0700 tablet Montelukast Tab [Singulair Tab] 10 mg PO DAILY tablet Morphine Inj 2 mg IV Q6H PRN syringe PRN Reason: Pain Severe (8-10) Naproxen [Naprosyn Tab] 250 mg PO DAILY PRN tablet PRN Reason: Pain Pantoprazole Inj [Protonix Inj] 40 mg IV DAILY vial Sertraline [Zoloft] 25 mg PO BEDTIME tablet Simethicone Chew Tab [Mylanta Gas Max Str] 125 mg PO DAILY PRN tablet PRN Reason: Gas Ticagrelor [Brilinta] 90 mg PO BID tablet traMADol TAB [Ultram] 50 mg PO BID tablet Acetaminophen Tab [Tylenol Tab] 325 mg PO BID PRN tablet PRN Reason: Fever, Headache, Mild Pain Cilostazol [Pletal] 50 mg PO BID tablet Gabapentin Cap/Tab [Neurontin Cap/Tab] 100 mg PO TID capsule methylPREDNISolone SOD SUC INJ [SoluMEDROL] 40 mg IV Q12H vial Nitroglycerin Sl Tab [Nitrostat] 0.4 mg SL Q5M PRN tablet PRN Reason: Chest Pain Temazepam [Restoril] 30 mg PO BEDTIME PRN capsule PRN Reason: Sleep Continue Fluticasone/Vilanterol [Breo Ellipta 100-25 Mcg INH] 1 puff INH DAILY Discontinued Nitroglycerin [Nitroglycerin SL Tab] 0.4 mg SL Q5M PRN PRN Reason: Chest Pain Hyoscyamine Sulfate [Symax] 0.125 mg PO Q4HR PRN PRN Reason: Indigestion Levothyroxine Tab [Synthroid Tab] 25 mcg PO DAILY@0700 Temazepam [Restoril] 30 mg PO BEDTIME PRN PRN Reason: Sleep amLODIPine [Norvasc] 5 mg PO DAILY Meclizine [Antivert] 25 mg PO DAILY PRN PRN Reason: Nausea Umeclidinium [place] [Incruse Ellipta] 1 puff INH DAILY HYDROcodone/ACETAMIN 10-325 [[place] 10-325] 0.5 - 1 tablet PO BID PRN PRN Reason: Pain Aspirin Chew Tab 81 mg PO DAILY tablet Cilostazol [Pletal] 50 mg PO BID #60 tablet Gabapentin Cap/Tab [Neurontin Cap/Tab] 100 mg PO TID #90 capsule Sertraline [Zoloft] 25 mg PO BEDTIME #30 tablet Ticagrelor [Brilinta] 90 mg PO BID #60 tablet Isosorbide Dinitrate Sr [Isordil Sr] 40 mg PO TID Simethicone 125 mg PO DAILY PRN PRN Reason: Gas Acetaminophen Tab [Tylenol Tab] 325 mg PO BID PRN PRN Reason: Fever, Headache, Mild Pain Naproxen Sodium [Aleve Tab] 220 mg PO DAILY tablet Omeprazole 20 mg PO DAILY #30 tablet. traMADol TAB [Ultram] 50 mg PO BID #30 tablet - Follow Up or Referral - Forms/Instructions Additional Discharge Instructions: CXR on arrival to verify ET tube placement after transfer. Exam - Constitutional Vitals: Period Temp Pulse Resp BP Sys/Booker Pulse Ox Last 24 Hr 96.3 F-98.5 F 81-118 10-28 83-159/50-89 98-100 General appearance: no acute distress, under weight - Eye Eye exam: Present: EOMI. Absent: scleral icterus - Respiratory Respiratory exam: Present: clear to auscultation bilaterally. Absent: rhonchi, wheezes - Cardiovascular Cardiovascular exam: Present: regular rate and rhythm - GI/Abdominal GI/Abdominal exam: Present: normal bowel sounds, soft. Absent: tenderness - Extremities Exam Extremities exam: Absent: edema - Neurological Exam Neurological exam: Present: alert (with sedation turned down, nods and shakes head to questions appropriately) - Skin Skin exam: Present: warm, dry Discharge Results Procedures and tests throughout hospitalization: Pending Orders 10/23/16 02:53 Blood Culture Stat 10/29/16 04:00 XR chest 1V portable IN AM ABG [Arterial Blood Gas] IN AM Basic Metabolic Panel IN AM Comp Blood Count Auto Diff IN AM 10/30/16 04:00 XR chest 1V portable IN AM ABG [Arterial Blood Gas] IN AM Basic Metabolic Panel IN AM Comp Blood Count Auto Diff IN AM 10/31/16 04:00 XR chest 1V portable IN AM ABG [Arterial Blood Gas] IN AM Magnesium Routine Phosphorous Routine Prealbumin Routine Labs on day of discharge: Labs from last 24 hours 10/28/16 10/28/16 10/28/16 11:55 09:55 06:18 WBC 9.0 D RBC 3.05 L Hgb 9.6 L Hct 30.6 L MCV 100.3 MCH 32 MCHC 31.4 L RDW 14.9 Plt Count 226 MPV 9.5 L Neut % (Auto) 77.3 H Lymph % (Auto) 13.5 L [place] % (Auto) 8.4 Eos % (Auto) 0.1 Baso % (Auto) 0.0 Neut # (Auto) 6.9 Lymph # (Auto) 1.2 L [place] # (Auto) 0.8 Eos # (Auto) 0.0 Baso # (Auto) 0.0 Immature Gran % 0.7 Nucleated RBC % 0.0 Immature Gran # 0.06 Nucleated RBCs # 0.00 ABG pH 7.210 L ABG pCO2 71.8 H* ABG pO2 97.7 H ABG HCO3 28.1 H ABG Total CO2 30.3 H ABG O2 Saturation 96.9 ABG Base Excess -1.1 FiO2 Sodium Potassium Chloride Carbon Dioxide Anion Gap BUN Creatinine GFR Calculation BUN/Creatinine Ratio Glucose POC Glucose 135 H Calculated Osmolality Calcium 10/28/16 10/28/16 10/28/16 06:15 04:49 04:48 WBC RBC Hgb Hct MCV MCH MCHC RDW Plt Count MPV Neut % (Auto) Lymph % (Auto) [place] % (Auto) Eos % (Auto) Baso % (Auto) Neut # (Auto) Lymph # (Auto) [place] # (Auto) Eos # (Auto) Baso # (Auto) Immature Gran % Nucleated RBC % Immature Gran # Nucleated RBCs # ABG pH 7.348 L ABG pCO2 50.8 H ABG pO2 179.5 H ABG HCO3 27.3 H ABG Total CO2 28.8 H ABG O2 Saturation 98.9 ABG Base Excess 1.2 FiO2 50.00 Sodium 148 H Potassium 5.0 Chloride 116 H Carbon Dioxide 23 Anion Gap 14.0 BUN 29 H Creatinine 0.40 L GFR Calculation 76 BUN/Creatinine Ratio 72.00 H Glucose 85 POC Glucose 129 H Calculated Osmolality 298.3 Calcium 8.1 L 10/28/16 10/27/16 00:07 17:46 WBC RBC Hgb Hct MCV MCH MCHC RDW Plt Count MPV Neut % (Auto) Lymph % (Auto) [place] % (Auto) Eos % (Auto) Baso % (Auto) Neut # (Auto) Lymph # (Auto) [place] # (Auto) Eos # (Auto) Baso # (Auto) Immature Gran % Nucleated RBC % Immature Gran # Nucleated RBCs # ABG pH ABG pCO2 ABG pO2 ABG HCO3 ABG Total CO2 ABG O2 Saturation ABG Base Excess FiO2 Sodium Potassium Chloride Carbon Dioxide Anion Gap BUN Creatinine GFR Calculation BUN/Creatinine Ratio Glucose POC Glucose 110 H 123 H Calculated Osmolality Calcium Preliminary micro results at discharge 10/23/16 02:53 Blood Culture - Preliminary Blood No growth at 3 days 10/23/16 00:26 Blood Culture - Preliminary Blood No growth at 3 days DS: Provider Date of admission: 10/24/16 03:13 Primary care physician: . No PCP Attending physician on admission: Rigo Briones MD Consults: 10/24/16 03:18 Consult to Pharmacy [CONS] Routine Reason for Pharmacy Consult: Dose/Manage Vancomycin 10/24/16 05:54 Consult to Physician [CONS] Routine Comment: Consulting Provider: Branden Hillman When should Consulting Provider be notified: In am Person Notified: dr hillman on rounds Date Notified: 10/24/16 Time Notified: 09:00 Consult Notification Comment: [facility] watters stated they were aware of consult 10/24/16 12:08 Consult to Dietitian [CONS] Routine Reason for Dietitian: TF-Initiate/Manage 10/27/16 11:53 Consult to Case Mgmt/Social Srvs [CONS] Routine Reason for Case Mgmt/Social Srvs: LTAC Discharging clinician: Rosaura Hunter MD
[2016-10-28 18:28] VITALS: BP 116/59
== END 2016-10-28 17:30 | DRG 207 ==
LOC: EDBD → EDUNIT# → N.ED 20:45 → N.EDINP 10-24 03:13 → SUATTDRO 10-24 03:13 → N.CC 10-24 04:21
PROVIDERS: ADMIT Internal Medicine Infectious Disease; ATTEND Internal Medicine